=== PATIENT | female | born 1960 | race Caucasian/White ===

== ENCOUNTER 2016-09-05 14:58 | Emergency (ER) | payer OTHER ==
[~2016-09-05] VITALS: Ht 154.9 cm; Wt 113.2 kg
[~2016-09-05 14:58] MED LIST: FENOFIBRATE160 M1 PO; FLUTICASONE PRO16 GM BOTH NARES; GLIPIZIDE ER2.5 MG PO; IRON325 M1 PO; LISINOPRIL40 MG PO; METFORMIN HCL500 MG PO; MONTELUKAST SOD10 MG PO; NAPROXEN500 MG PO; PERCOCET 5/31 TABLET PO; PROAIR HFA8.5 GM IH; PROMETHAZINE HC25 M1 PO; ROPINIROLE HCL1 MG PO; TROSPIUM CHLORI20 MG PO; TYLENOL EXTRA500 MG PO; VERAPAMIL HCL240 MG PO; ZYRTEC10 M3 PO
[2016-09-05 15:04] VITALS: BP 133/70
== END 2016-09-05 19:30 | disposition home or self-care (01) ==
LOC: EME 14:58
DX: S80.01XA Contusion of right knee, initial encounter (principal); S80.02XA Contusion of left knee, initial encounter; S00.511A Abrasion of lip, initial encounter; M79.674 Pain in right toe(s); M79.675 Pain in left toe(s); W01.0XXA Fall on same level from slipping, tripping and stumbling without subsequent striking against object, initial encounter; Y92.000 Kitchen of unspecified non-institutional (private) residence as the place of occurrence of the external cause; E11.22 Type 2 diabetes mellitus with diabetic chronic kidney disease; I12.9 Hypertensive chronic kidney disease with stage 1 through stage 4 chronic kidney disease, or unspecified chronic kidney disease; N18.3 Chronic kidney disease, stage 3 (moderate)
CPT/HCPCS: 73564; 99281; 99284

== ENCOUNTER → 2016-10-26 | Outpatient (CLI) | payer OTHER | END | disposition home or self-care (01) | LOC: CDC 08:21 | DX: Z01.810 Encounter for preprocedural cardiovascular examination (principal); M65.311 Trigger thumb, right thumb | CPT/HCPCS: 93000 ==

== ENCOUNTER → 2017-04-18 | Outpatient (CLI) | payer OTHER | END | disposition home or self-care (01) | DX: M17.12 Unilateral primary osteoarthritis, left knee (principal); R26.2 Difficulty in walking, not elsewhere classified; M25.562 Pain in left knee; M25.662 Stiffness of left knee, not elsewhere classified; M62.81 Muscle weakness (generalized); Z74.1 Need for assistance with personal care | CPT/HCPCS: 97161 GP; 97165 GO; 97530 GP; 97537 GO ==

== ENCOUNTER 2017-05-21 21:34 | Inpatient (IN) | payer OTHER ==
[~2017-05-21] VITALS: Ht 154.9 cm; Wt 113.0 kg
[~2017-05-21 21:34] MED LIST changes: +CYANOCOBALAM1000 MCG PO; +ERGOCALCIF50000 UNIT PO; -FLUTICASONE PRO16 GM BOTH NARES; -GLIPIZIDE ER2.5 MG PO; +GLIPIZIDE XL10 MG PO; +IMITREX100 MG PO; +JANUVIA25 M1 PO; +LISINOPRIL20 MG PO; -LISINOPRIL40 MG PO; +NASONEX17 GM BOTH NARES; +TRULICITY0.75 MG/0. SC; +ULTRAM50 MG PO
[2017-05-22 06:03] VITALS: BP 128/58
[2017-05-22 06:08] LABS: POINT-OF-CARE METER ID UU14174212
[2017-05-22 09:27] LABS: POINT-OF-CARE METER ID UU13113675
[2017-05-22 09:29] LABS: HEMATOCRIT 30.3 % (36.0-46.0); MCH 26.9 PG (29.0-34.0); MCV 83.9 FL (83-99); MEAN PLAT.VOLUME 9.3 uM^3 (9.5-12.4); PLATELET COUNT 269 K/uL (156-360); RBC DIS.WIDTH-CV 13.1 % (11.8-14.6); RBC DIS.WIDTH-SD 40.1 % (39-53); RED BLOOD COUNT 3.61 M/uL (3.80-5.20); WHITE BLOOD COUNT 9.5 K/uL (4.1-10.2)
[2017-05-22 11:17] VITALS: BP 118/63
[2017-05-22 12:44] LABS: POINT-OF-CARE METER ID UU13113712
[2017-05-22 15:08] VITALS: BP 143/77
[2017-05-22 16:14] LABS: POINT-OF-CARE METER ID UU13113712
[2017-05-22 19:57] VITALS: BP 147/82
[2017-05-22 21:53] LABS: POINT-OF-CARE METER ID UU13113712
[2017-05-23 00:06] VITALS: BP 179/82
[2017-05-23 04:30] VITALS: BP 161/81
[2017-05-23 05:08] LABS: HEMATOCRIT 30.7 % (36.0-46.0); MCV 81.4 FL (83-99)
[2017-05-23 05:59] LABS: ANION GAP 10 MEQ/L (2-14); CHLORIDE 100 MEQ/L (99-109); GFR ESTIMATE (CALCULATED) 49 mL/min/; GLUCOSE 177 mg/dL (70-99); POTASSIUM 4.5 MEQ/L (3.7-5.4); SAMPLE HEMOLYSIS CHECK 0; SAMPLE ICTERIC CHECK 0; SAMPLE LIPEMIA CHECK 0; SODIUM 130 MEQ/L (136-147); UREA NITROGEN (BUN) 22 mg/dL (9-23)
[2017-05-23 07:12] VITALS: BP 142/68
[2017-05-23 07:58] LABS: POINT-OF-CARE METER ID UU13113712
[2017-05-23 11:47] VITALS: BP 163/71
[2017-05-23 11:56] LABS: POINT-OF-CARE METER ID UU13113712
[2017-05-23 16:00] VITALS: BP 148/69
[2017-05-23 16:28] LABS: POINT-OF-CARE METER ID UU13113712
[2017-05-23 20:24] VITALS: BP 146/83
[2017-05-23 21:57] LABS: POINT-OF-CARE METER ID UU13113712
[2017-05-24 00:24] VITALS: BP 139/68
[2017-05-24 04:30] VITALS: BP 148/65
[2017-05-24 05:44] LABS: HEMATOCRIT 30.1 % (36.0-46.0)
[2017-05-24 06:04] LABS: ALKALINE PHOSPHATASE 73 IU/L (3-129); ANION GAP 9 MEQ/L (2-14); CHLORIDE 99 MEQ/L (99-109); GFR ESTIMATE (CALCULATED) 49 mL/min/; GLUCOSE 165 mg/dL (70-99); POTASSIUM 4.8 MEQ/L (3.7-5.4); SAMPLE HEMOLYSIS CHECK 0; SAMPLE ICTERIC CHECK 0; SAMPLE LIPEMIA CHECK 0; SODIUM 129 MEQ/L (136-147); TOTAL BILIRUBIN 0.6 MG/DL (0.0-1.0); UREA NITROGEN (BUN) 18 mg/dL (9-23)
[2017-05-24 08:07] LABS: POINT-OF-CARE METER ID UU13113712
[2017-05-24 08:16] VITALS: BP 126/56
[2017-05-24 11:30] LABS: POINT-OF-CARE METER ID UU13113712
[2017-05-24 11:57] VITALS: BP 115/57
[2017-05-24 15:56] VITALS: BP 137/65
[2017-05-24 17:24] LABS: POINT-OF-CARE METER ID UU13113712
[2017-05-24 20:19] VITALS: BP 133/57
[2017-05-24 21:42] LABS: POINT-OF-CARE METER ID UU13113712
[2017-05-25 00:30] VITALS: BP 126/64
[2017-05-25 04:30] VITALS: BP 112/59
[2017-05-25 07:30] LABS: POINT-OF-CARE METER ID UU13113712
[2017-05-25 07:33] LABS: ANION GAP 12 MEQ/L (2-14); CHLORIDE 99 MEQ/L (99-109); GFR ESTIMATE (CALCULATED) 41 mL/min/; POTASSIUM 4.4 MEQ/L (3.7-5.4); SAMPLE HEMOLYSIS CHECK 0; SAMPLE ICTERIC CHECK 0; SAMPLE LIPEMIA CHECK 0; SODIUM 132 MEQ/L (136-147); UREA NITROGEN (BUN) 24 mg/dL (9-23)
[2017-05-25 07:38] LABS: GLUCOSE 113 mg/dL (70-99)
[2017-05-25 08:18] VITALS: BP 125/60
[2017-05-25] MEDS ORDERED: LOVENOX40 MG/0.4 SC (08:52)
[2017-05-25] MEDS ORDERED: METAXALONE800 MG PO (08:52)
[2017-05-25] MEDS ORDERED: ENDOCET 5-3251 EACH PO (08:52)
== END 2017-05-25 11:40 | DRG 470 ==
LOC: ENRESERV 21:34 → 3WEST 05-22 05:26 → 2SOUTH 05-22 05:26 → 3WEST 05-22 11:01 → 2SOUTH 05-22 12:44 → 3WEST 05-25 11:40
PROVIDERS: Nurse Practitioner Family; Orthopaedic Surgery; Physician Assistant
PROC: 0SRD0J9 Replacement of Left Knee Joint with Synthetic Substitute, Cemented, Open Approach (ICD-10-PCS; principal; 2017-05-22)
DX: M17.12 Unilateral primary osteoarthritis, left knee (principal); E87.1 Hypo-osmolality and hyponatremia; Z68.42 Body mass index [BMI] 45.0-49.9, adult; J45.909 Unspecified asthma, uncomplicated; I10 Essential (primary) hypertension; E11.9 Type 2 diabetes mellitus without complications; E78.5 Hyperlipidemia, unspecified; N18.3 Chronic kidney disease, stage 3 (moderate); I12.9 Hypertensive chronic kidney disease with stage 1 through stage 4 chronic kidney disease, or unspecified chronic kidney disease; G47.33 Obstructive sleep apnea (adult) (pediatric); E66.9 Obesity, unspecified; Z88.1 Allergy status to other antibiotic agents; Z88.6 Allergy status to analgesic agent; Z79.84 Long term (current) use of oral hypoglycemic drugs; Z91.19 Patient's noncompliance with other medical treatment and regimen; Z60.2 Problems related to living alone
CPT/HCPCS: 73560; 80048; 80053; 82948; 85014; 85018; 85027; 97530 GO; 99202; C1713; J0131; J0690; J1170; J1650; J1815; J2250; J2405; J3010; J7030; J7050; Q0175

== ENCOUNTER 2018-03-15 23:31 | Observation (INO) | payer OTHER ==
[~2018-03-15] VITALS: Ht 154.9 cm; Wt 113.6 kg
[~2018-03-15 23:31] MED LIST changes: +ENDOCET 5-3251 EACH PO; +LOVENOX40 MG/0.4 SC; +METAXALONE800 MG PO
[2018-03-16 00:17] LABS: HEMATOCRIT 32.1 % (36.0-46.0); HEMOGLOBIN 10.8 G/DL (11.9-15.5); MCH 27.3 PG (29.0-34.0); MCHC 33.6 G/DL (30.0-36.0); MCV 81.3 FL (83-99); PLATELET COUNT 267 K/uL (156-360); RBC DIS.WIDTH-CV 12.8 % (11.8-14.6); RBC DIS.WIDTH-SD 37.8 % (39-53); RED BLOOD COUNT 3.95 M/uL (3.80-5.20); WHITE BLOOD COUNT 8.3 K/uL (4.1-10.2)
[2018-03-16 00:30] LABS: CHLORIDE 104 mEq/L (99-109); POTASSIUM 4.5 mEq/L (3.7-5.4); SODIUM 136 mEq/L (136-147)
[2018-03-16 00:32] LABS: GLUCOSE 178 mg/dL (70-99)
[2018-03-16 00:35] LABS: CREATININE 1.4 mg/dL (0.6-1.3); GFR ESTIMATE (CALCULATED) 41 mL/min/
[2018-03-16 00:36] LABS: UREA NITROGEN (BUN) 25 mg/dL (9-23)
[2018-03-16 00:44] LABS: TROP-I INTERPRETATION NEGATIVE; TROPONIN-I < 0.01 ng/mL (0.0-0.30)
[2018-03-16 02:08] LABS: ALBUMIN 4.1 g/dL (3.2-4.8)
[2018-03-16 02:11] LABS: TOTAL PROTEIN 7.2 g/dL (6.4-8.3)
[2018-03-16 02:13] LABS: TOTAL BILIRUBIN 0.4 mg/dL (0.0-1.0)
[2018-03-16 02:14] LABS: ALKALINE PHOSPHATASE 110 IU/L (3-129)
[2018-03-16 02:16] LABS: AST (GOT) 14 IU/L (2-34)
[2018-03-16 02:17] LABS: ALT (GPT) 17 IU/L (3-49); DIRECT BILIRUBIN 0.1 mg/dL (0.0-0.3)
[2018-03-16 02:18] LABS: LIPASE 67 U/L (1.0-51.0)
[2018-03-16 02:59] LABS: TROP-I INTERPRETATION NEGATIVE; TROPONIN-I < 0.01 ng/mL (0.0-0.30)
[2018-03-16 07:50] VITALS: BP 135/72
[2018-03-16] MEDS ORDERED: FLONASE16 G1 BOTH NARES (07:57)
[2018-03-16 11:34] VITALS: BP 123/61
[2018-03-16 12:27] LABS: TROP-I INTERPRETATION NEGATIVE; TROPONIN-I < 0.01 ng/mL (0.0-0.30)
[2018-03-16 15:18] VITALS: BP 113/70
[2018-03-16] MEDS ORDERED: ASPIR 8181 M1 PO (15:55)
== END 2018-03-16 18:00 | disposition home or self-care (01) ==
LOC: EME 23:31 → EDOF 03-16 05:59 → ENRESERV 03-16 06:00 → 4SOUTH 03-16 07:46
PROVIDERS: Emergency Medicine; Hospitalist
DX: M54.9 Dorsalgia, unspecified (principal); I12.9 Hypertensive chronic kidney disease with stage 1 through stage 4 chronic kidney disease, or unspecified chronic kidney disease; E11.22 Type 2 diabetes mellitus with diabetic chronic kidney disease; N18.3 Chronic kidney disease, stage 3 (moderate); E66.9 Obesity, unspecified; J45.909 Unspecified asthma, uncomplicated; G25.81 Restless legs syndrome; K76.0 Fatty (change of) liver, not elsewhere classified; I25.84 Coronary atherosclerosis due to calcified coronary lesion; Z87.891 Personal history of nicotine dependence; Z88.6 Allergy status to analgesic agent; Z88.1 Allergy status to other antibiotic agents; Z88.7 Allergy status to serum and vaccine; E78.5 Hyperlipidemia, unspecified; Z79.84 Long term (current) use of oral hypoglycemic drugs
CPT/HCPCS: 71046; 72128; 78582; 80048; 80076; 81003; 83690; 84484; 85027; 85379; 93005; 99281; 99285; A9540; A9567; G0378